=== PATIENT | female | born 1995 | race Hispanic/Latino ===

== ENCOUNTER 2025-01-29 22:49 | Emergency (ER) | payer OTHER ==
[~2025-01-29] VITALS: Ht 162.6 cm; Wt 108.4 kg
[2025-01-29 22:52] VITALS: BP 128/84; PULSE 73; RESP 20; TEMP 96.8
--- NOTE | 2025-01-30 00:09 | NUR ---
PT CARE ASSUMED AT THIS TIME
--- NOTE | 2025-01-30 00:30 | NUR ---
ED RN WENT INTO ED ROOM 14 AND PT WAS NOT THERE. ED RN WENT TO LOBBY TO SEE IF PT WAS THERE. NO ANSWER. PT DID NOT INFORM ED RN THAT THEY WERE LEAVING.
--- NOTE | 2025-01-30 01:28 | ERN ---
ED Note History of Present Illness Stated Complaint: C/O RT UPPER BACK PAIN X 3 DAYS Chief Complaint: Back Pain-No Injury Time Seen by MD: 23:22 Dictation: 29-year-old female who comes in with a complaint of low back pain. I was called to a rapid response upstairs and was unable to see her when I came back from the rapid response there was a bed assignment for the patient but she left so I can not evaluate her or treat her at this time. Allergies: Coded Allergies: Penicillins (Unverified Allergy, Unknown, 01/29/25) Past Medical History Past Medical History: Asthma Additional Past Medical Hx: HX OF PCOS Surgical History: Cholecystectomy LMP: Dec 02, 2024 Review of System Dictation Unable to assess the patient she left the hospital Initial Vital Sign VS Vital Signs Date Time Temp Pulse Resp B/P (MAP) Pulse Ox O2 Delivery O2 Flow Rate FiO2 01/29/25 22:52 96.8 73 20 128/84 98 Room Air Physical Exam Dictation Unable to perform physical exam patient left ED Course ED Course Vital Signs Date Time Temp Pulse Resp B/P (MAP) Pulse Ox O2 Delivery O2 Flow Rate FiO2 01/29/25 22:52 96.8 73 20 128/84 98 Room Air Medical Decision Making MDM I will close the chart DX & DISP Disposition: Other(Comment) (Patient left before I could see her.) Departure Impression: Primary Impression: Back pain Condition: Stable Referrals: SELF,REFERRAL (PCP) DORIS HANEY MD Jan 30, 2025 01:28
== END 2025-01-30 00:30 | disposition left against medical advice (07) ==
LOC: EDH 22:49
DX: M54.50 Low back pain, unspecified (principal); J45.909 Unspecified asthma, uncomplicated; Z53.21 Procedure and treatment not carried out due to patient leaving prior to being seen by health care provider; Z88.0 Allergy status to penicillin; Z90.49 Acquired absence of other specified parts of digestive tract